=== PATIENT | male | born 1965 | race Caucasian/White ===

== ENCOUNTER 2019-09-14 15:37 | Inpatient (IN) | payer BC ==
[2019-09-14 16:35] LABS: Basophils % (A) 1 %; Eosinophils % (A) 1 %; HCT 41.4 % (39.0-53.0); Lymphocytes # (A) 0.6 k/uL (1.0-4.8); Lymphocytes % (A) 20 %; MCH 30.5 pg (25.0-35.0); MCHC 36.3 g/dL (31.0-37.0); Mean Platelet Volume 7.5; Monocytes # (A) 0.1 k/uL (0-1.0); Monocytes % (A) 3 %; Neutrophils % (A) 72 %; Platelet Count 112 k/uL (150-450); RBC 4.93 m/uL (4.30-5.90); RDW 12.8 % (11.5-15.5); WBC 2.8 k/uL (3.8-10.6)
[2019-09-14] MEDS ORDERED: IBUPROFEN 800 MG TAB PO STA (16:42)
[2019-09-14] MEDS ORDERED: SODIUM CHLORIDE 0.9% 1,000 ML IV STA (16:42)
--- NOTE | 2019-09-14 16:42 | ED ---
Fever HPI - General Chief Complaint: Fever Stated Complaint: Fever Time Seen by Provider: 09/14/19 16:00 Source: patient, RN notes reviewed, old records reviewed Mode of arrival: ambulatory Limitations: no limitations - History of Present Illness Initial Comments: This is a 54-year-old male presented today for evaluation bodyaches severe body aches pains myalgias sweating fever 3 days back pain. No real shortness of breath patient states she does not feel well has 12th time sleeping at night, patient is no sick contacts no travel history MD Complaint: fever, weakness -: days(s) (3) Temperature Source: oral Context: sick contacts Associated Symptoms: chills, rigors, myalgias, headache Treatments Prior to Arrival: Acetaminophen - Related Data Allergies Allergy/AdvReac Type Severity Reaction Status Date / Time No Known Allergies Allergy Verified 09/14/19 15:42 Review of Systems ROS Statement: Those systems with pertinent positive or pertinent negative responses have been documented in the HPI. ROS Other: All systems not noted in ROS Statement are negative. Past Medical History Past Medical History: No Reported History History of Any Multi-Drug Resistant Organisms: None Reported Past Surgical History: Orthopedic Surgery Past Psychological History: No Psychological Hx Reported Smoking Status: Never smoker Past Alcohol Use History: Occasional Past Drug Use History: None Reported General Exam Limitations: no limitations General appearance: alert, anxious, in distress Head exam: Present: atraumatic, normocephalic, normal inspection Eye exam: Present: normal appearance, PERRL, EOMI. Absent: scleral icterus, conjunctival injection, periorbital swelling ENT exam: Present: normal exam, mucous membranes moist Neck exam: Present: normal inspection. Absent: tenderness, meningismus, lymphadenopathy Respiratory exam: Present: normal lung sounds bilaterally. Absent: respiratory distress, wheezes, rales, rhonchi, stridor Cardiovascular Exam: Present: normal rhythm, tachycardia, normal heart sounds. Absent: systolic murmur, diastolic murmur, rubs, gallop, clicks GI/Abdominal exam: Present: soft, normal bowel sounds. Absent: distended, tenderness, guarding, rebound, rigid Extremities exam: Present: normal inspection, full ROM, normal capillary refill. Absent: tenderness, pedal edema, joint swelling, calf tenderness Back exam: Present: normal inspection Neurological exam: Present: alert, oriented X3, CN II-XII intact Psychiatric exam: Present: normal affect, normal mood Skin exam: Present: warm, dry, intact, normal color. Absent: rash Course Vital Signs 09/14/19 09/14/19 09/14/19 15:39 16:30 17:00 Temperature 102.9 F H Pulse Rate 101 H 95 94 Respiratory 17 26 H 22 Rate Blood Pressure 138/83 130/76 125/68 O2 Sat by Pulse 94 L 95 94 L Oximetry 09/14/19 17:30 Temperature Pulse Rate 88 Respiratory 22 Rate Blood Pressure 117/64 O2 Sat by Pulse 94 L Oximetry Medical Decision Making - Medical Decision Making 54 male DF for fever patient has likely COVID 19 disease will admit for supportive care - Lab Data Result diagrams: 09/14/19 16:15 09/14/19 16:15 Lab Results 09/14/19 09/14/19 09/14/19 Range/Units 16:15 16:15 16:15 WBC 2.8 L (3.8-10.6) k/uL RBC 4.93 (4.30-5.90) m/uL Hgb 15.0 (13.0-17.5) gm/dL Hct 41.4 (39.0-53.0) % MCV 84.0 (80.0-100.0) fL MCH 30.5 (25.0-35.0) pg MCHC 36.3 (31.0-37.0) g/dL RDW 12.8 (11.5-15.5) % Plt Count 112 L (150-450) k/uL Neutrophils % 72 % Lymphocytes % 20 % Monocytes % 3 % Eosinophils % 1 % Basophils % 1 % Neutrophils # 2.0 (1.3-7.7) k/uL Lymphocytes # 0.6 L (1.0-4.8) k/uL Monocytes # 0.1 (0-1.0) k/uL Eosinophils # 0.0 (0-0.7) k/uL Basophils # 0.0 (0-0.2) k/uL PT 11.0 (9.0-12.0) sec INR 1.1 (<1.2) APTT 24.7 (22.0-30.0) sec D-Dimer 10.91 H (<0.60) mg/L FEU Sodium 132 L (137-145) mmol/L Potassium 3.8 (3.5-5.1) mmol/L Chloride 103 (98-107) mmol/L Carbon Dioxide 22 (22-30) mmol/L Anion Gap 7 mmol/L BUN 15 (9-20) mg/dL Creatinine 0.95 (0.66-1.25) mg/dL Est GFR (CKD-EPI)AfAm >90 (>60 ml/min/1.73 sqM) Est GFR (CKD-EPI)NonAf >90 (>60 ml/min/1.73 sqM) Glucose 116 H (74-99) mg/dL Plasma Lactic Acid Saurabh (0.7-2.0) mmol/L Calcium 8.3 L (8.4-10.2) mg/dL Magnesium 1.8 (1.6-2.3) mg/dL Total Bilirubin 2.1 H (0.2-1.3) mg/dL AST 302 H (17-59) U/L ALT 243 H (4-49) U/L Alkaline Phosphatase 274 H (38-126) U/L Lactate Dehydrogenase 1490 H (313-618) U/L C-Reactive Protein 52.5 H (<10.0) mg/L Total Protein 6.6 (6.3-8.2) g/dL Albumin 3.8 (3.5-5.0) g/dL 09/14/19 Range/Units 16:15 WBC (3.8-10.6) k/uL RBC (4.30-5.90) m/uL Hgb (13.0-17.5) gm/dL Hct (39.0-53.0) % MCV (80.0-100.0) fL MCH (25.0-35.0) pg MCHC (31.0-37.0) g/dL RDW (11.5-15.5) % Plt Count (150-450) k/uL Neutrophils % % Lymphocytes % % Monocytes % % Eosinophils % % Basophils % % Neutrophils # (1.3-7.7) k/uL Lymphocytes # (1.0-4.8) k/uL Monocytes # (0-1.0) k/uL Eosinophils # (0-0.7) k/uL Basophils # (0-0.2) k/uL PT (9.0-12.0) sec INR (<1.2) APTT (22.0-30.0) sec D-Dimer (<0.60) mg/L FEU Sodium (137-145) mmol/L Potassium (3.5-5.1) mmol/L Chloride (98-107) mmol/L Carbon Dioxide (22-30) mmol/L Anion Gap mmol/L BUN (9-20) mg/dL Creatinine (0.66-1.25) mg/dL Est GFR (CKD-EPI)AfAm (>60 ml/min/1.73 sqM) Est GFR (CKD-EPI)NonAf (>60 ml/min/1.73 sqM) Glucose (74-99) mg/dL Plasma Lactic Acid Saurabh 0.9 (0.7-2.0) mmol/L Calcium (8.4-10.2) mg/dL Magnesium (1.6-2.3) mg/dL Total Bilirubin (0.2-1.3) mg/dL AST (17-59) U/L ALT (4-49) U/L Alkaline Phosphatase (38-126) U/L Lactate Dehydrogenase (313-618) U/L C-Reactive Protein (<10.0) mg/L Total Protein (6.3-8.2) g/dL Albumin (3.5-5.0) g/dL - EKG Data -: EKG Interpreted by Me (EKG shows sinus 94, TX 134, QRS 70, QTc 420) - Radiology Data Radiology results: report reviewed (Chest x-rays negative for acute disease), image reviewed Disposition Clinical Impression: Viral infection, Sepsis, Fever Narrative: possible COVID r/o Disposition: ADMITTED IP TO THIS [facility] Condition: Fair Is patient prescribed a controlled substance at d/c from ED?: No Referrals: Nonstaff,Physician [Primary Care Provider] - 1-2 days
--- NOTE | 2019-09-14 16:42 | XR ---
EXAMINATION TYPE: XR chest 1V portable DATE OF EXAM: 09/14/2019 COMPARISON: None INDICATION: Suspected Covid 19 pneumonia, fever, cough TECHNIQUE: Single frontal view of the chest is obtained. FINDINGS: The heart size is normal. The pulmonary vasculature is normal. The lungs are clear. IMPRESSION: 1. No acute pulmonary process radiographically apparent..
[2019-09-14 16:46] LABS: ALT 243 U/L (4-49); AST 302 U/L (17-59); African American GFR (CKD) >90 (>60 ml/min/1.73 sqM); Albumin 3.8 g/dL (3.5-5.0); Alkaline Phosphatase 274 U/L (38-126); Anion Gap 7 mmol/L; Blood Urea Nitrogen 15 mg/dL (9-20); C Reactive Protein 52.5 mg/L (<10.0); Calcium 8.3 mg/dL (8.4-10.2); Carbon Dioxide 22 mmol/L (22-30); Chloride 103 mmol/L (98-107); Glucose 116 mg/dL (74-99); LDH 1490 U/L (313-618); Magnesium 1.8 mg/dL (1.6-2.3); Non-African American GFR(CKD) >90 (>60 ml/min/1.73 sqM); Potassium 3.8 mmol/L (3.5-5.1); Sodium 132 mmol/L (137-145); Total Bilirubin 2.1 mg/dL (0.2-1.3); Total Protein 6.6 g/dL (6.3-8.2)
[2019-09-14 17:06] LABS: INR 1.1 (<1.2); Partial Thromboplastin Time 24.7 sec (22.0-30.0)
[2019-09-14 17:19] LABS: D-Dimer 10.91 mg/L FEU (<0.60)
[2019-09-14] MEDS ORDERED: MORPHINE SULFATE 4 MG/ML SYRINGE IVP STA (18:06)
[2019-09-14] MEDS: SODIUM CHLORIDE 0.9% 1,000 ML IV SCH (23:06)
[2019-09-15] MEDS: MORPHINE SULFATE 4 MG/ML SYRINGE IVP PRN ×4 (01:04→12:21)
[2019-09-15] MEDS: IBUPROFEN 400 MG TAB PO PRN ×2 (03:35→12:20)
[2019-09-15] MEDS: SODIUM CHLORIDE 0.9% 1,000 ML IV SCH ×3 (06:06→23:30)
--- NOTE | 2019-09-15 14:06 | P.HPIM ---
History of Present Illness 54-year-old male came in with comments of severe body aches myalgias and fever going on for about 4 days. Patient denied any shortness of breath. Patient had recent travel history or sick contacts. Chest x-ray did not show pneumonia. Patient is on room air at this time. Patient and any symptoms of dysuria nausea vomiting. Patient has severe pain and body aches and headache at this time. Review of Systems REVIEW OF SYSTEMS: CONSTITUTIONAL: As mentioned in HPI HEENT: No recent visual problems or hearing problems. Denied any sore throat. CARDIOVASCULAR: No chest pain, orthopnea, PND, no palpitations, no syncope. PULMONARY: No shortness of breath, no cough, no hemoptysis. GASTROINTESTINAL: No diarrhea, no nausea, no vomiting, no abdominal pain. NEUROLOGICAL: No headaches, no weakness, no numbness. HEMATOLOGICAL: Denies any bleeding or petechiae. GENITOURINARY: Denies any burning micturition, frequency, or urgency. MUSCULOSKELETAL/RHEUMATOLOGICAL: Denies any joint pain, swelling, or any muscle pain. ENDOCRINE: Denies any polyuria or polydipsia. The rest of the 14-point review of systems is negative. Past Medical History Past Medical History: No Reported History History of Any Multi-Drug Resistant Organisms: None Reported Past Surgical History: Orthopedic Surgery Additional Past Surgical History / Comment(s): shoulder, ankle Past Anesthesia/Blood Transfusion Reactions: No Reported Reaction Past Psychological History: No Psychological Hx Reported Smoking Status: Never smoker Past Alcohol Use History: Occasional Past Drug Use History: None Reported Medications and Allergies Home Medications Medication Instructions Recorded Confirmed Type No Known Home Medications 09/14/19 09/14/19 History Allergies Allergy/AdvReac Type Severity Reaction Status Date / Time No Known Allergies Allergy Verified 09/14/19 18:18 Physical Exam Vitals: Vital Signs Temp Pulse Pulse Resp BP BP Pulse Ox 09/15/19 12:00 99.7 F H 95 23 156/72 100 09/15/19 09:23 98.8 F 09/15/19 07:00 98.4 F 81 15 121/79 96 09/15/19 06:08 98.8 F 09/15/19 04:58 100.0 F H 09/15/19 04:30 102.0 F H 09/15/19 03:10 102.8 F H 103 H 132/71 96 09/14/19 23:10 98.3 F 73 15 126/73 99 09/14/19 23:08 98.3 F 60 16 109/60 99 09/14/19 21:00 64 16 112/74 95 09/14/19 19:56 16 09/14/19 19:53 98.4 F 64 16 110/57 96 09/14/19 18:38 98.6 F 09/14/19 18:30 71 22 119/70 94 L 09/14/19 18:00 71 16 124/73 94 L 09/14/19 17:30 88 22 117/64 94 L 09/14/19 17:00 94 22 125/68 94 L 09/14/19 16:30 95 26 H 130/76 95 09/14/19 15:39 102.9 F H 101 H 17 138/83 94 L Intake and Output 09/14/19 09/15/19 09/15/19 22:59 06:59 14:59 Other: Voiding Method Toilet Toilet # Voids 1 Weight 95.254 kg 95.254 kg PHYSICAL EXAMINATION: GENERAL: The patient is alert and oriented x3, not in any acute distress. Well developed, well nourished. HEENT: Pupils are round and equally reacting to light. EOMI. No scleral icterus. No conjunctival pallor. Normocephalic, atraumatic. No pharyngeal erythema. No thyromegaly. CARDIOVASCULAR: S1 and S2 present. No murmurs, rubs, or gallops. PULMONARY: Chest is clear to auscultation, no wheezing or crackles. ABDOMEN: Soft, nontender, nondistended, normoactive bowel sounds. No palpable organomegaly. MUSCULOSKELETAL: No joint swelling or deformity. EXTREMITIES: No cyanosis, clubbing, or pedal edema. NEUROLOGICAL: Gross neurological examination did not reveal any focal deficits. SKIN: No rashes. Note: Because of COVID 19 isolation, some of the history and physical exam findings or indirect and obtained from nursing staff, and other physician examinations to avoid unnecessary contact with the patient. Results CBC & Chem 7: 09/14/19 16:15 09/14/19 16:15 Labs: Abnormal Lab Results - Last 24 Hours (Table) 09/14/19 09/14/19 09/14/19 Range/Units 16:15 16:15 16:15 WBC 2.8 L (3.8-10.6) k/uL Plt Count 112 L (150-450) k/uL Lymphocytes # 0.6 L (1.0-4.8) k/uL D-Dimer 10.91 H (<0.60) mg/L FEU Sodium 132 L (137-145) mmol/L Glucose 116 H (74-99) mg/dL Calcium 8.3 L (8.4-10.2) mg/dL Total Bilirubin 2.1 H (0.2-1.3) mg/dL AST 302 H (17-59) U/L ALT 243 H (4-49) U/L Alkaline Phosphatase 274 H (38-126) U/L Lactate Dehydrogenase 1490 H (313-618) U/L C-Reactive Protein 52.5 H (<10.0) mg/L Procalcitonin (0.02-0.09) ng/mL 09/14/19 Range/Units 16:15 WBC (3.8-10.6) k/uL Plt Count (150-450) k/uL Lymphocytes # (1.0-4.8) k/uL D-Dimer (<0.60) mg/L FEU Sodium (137-145) mmol/L Glucose (74-99) mg/dL Calcium (8.4-10.2) mg/dL Total Bilirubin (0.2-1.3) mg/dL AST (17-59) U/L ALT (4-49) U/L Alkaline Phosphatase (38-126) U/L Lactate Dehydrogenase (313-618) U/L C-Reactive Protein (<10.0) mg/L Procalcitonin 0.33 H (0.02-0.09) ng/mL Thrombosis Risk Factor Assmnt - Choose All That Apply Each Factor Represents 1 point: Age 41-60 years, Obesity (BMI >25) Other Risk Factors: No Other congenital or acquired thrombophilia - If yes, enter type in comment: No Thrombosis Risk Factor Assessment Total Risk Factor Score: 2 Thrombosis Risk Factor Assessment Level: Low Risk Assessment and Plan Plan: -Sepsis most probably secondary to Covid 19 had supportive care IV fluids and patient was started on Rocephin by infectious disease empirically. -Hyponatremia hypotonic hyponatremia from sepsis secondary with IV fluids -Severe lymphopenia along with LDH and elevated d-dimer: Patient will be started on anticoagulation since of Lovenox for now. This will be continued if patient is positive for Covid 19 or is this will be discontinued patient will lead" for about a month and a tonsillectomy Covid 19 positive -Elevated liver enzymes secondary to sepsis and "from Covid 19 we'll repeat liver enzymes again tomorrow we will also repeat d-dimer to -Tachycardia secondary to sepsis and fever for continue with IV fluids
[2019-09-15] MEDS: ACETAMINOPHEN TAB 325 MG TAB PO PRN ×2 (14:53→21:05)
[2019-09-15] MEDS: KETOROLAC 30 MG/ML 1 ML VIAL IVP PRN (14:53)
[2019-09-15] MEDS ORDERED: ALPRAZolam 0.25 MG TAB PO PRN (15:08)
[2019-09-15 15:55] LABS: Ferritin 758.7 ng/mL (22.0-322.0)
--- NOTE | 2019-09-15 18:07 | CT ---
EXAMINATION TYPE: CT chest angio for PE DATE OF EXAM: 09/15/2019 COMPARISON: None HISTORY: elevated d-dimer CT DLP: 527.4 mGycm Automated exposure control for dose reduction was used. CONTRAST: Performed with IV Contrast, patient injected with 85cc mL of Isovue 370. There are 3-D post processed images. The lungs are clear of consolidation. There is no evidence of a pulmonary mass. There is mild subsegm ental atelectasis at the lung bases. Heart is slightly enlarged. There is no pericardial effusion. Th ere is no pleural effusion. There are no hilar masses. There is no mediastinal adenopathy. Thoracic aorta is intact without evide nce of aneurysm or dissection. There is normal contrast opacification of the pulmonary arteries. There are no filling defects. Victor um is intact. Bony thorax is intact. There is no thoracic compression fracture. IMPRESSION: There is some patchy atelectasis at the lung bases. No evidence of pulmonary embolism.
[2019-09-15] MEDS: ENOXAPARIN 100 MG/ML SYRINGE SQ SCH (21:05)
[2019-09-15 21:55] LABS: Hepatitis A Antibody IgM Non-Reactive (Non-Reactive); Hepatitis B Core IgM Non-Reactive (Non-Reactive); Hepatitis B Surface Antigen Non-Reactive (Non-Reactive); Hepatitis C IgG Antibody Non-Reactive (Non-Reactive)
[2019-09-16] MEDS: KETOROLAC 30 MG/ML 1 ML VIAL IVP PRN ×3 (05:53→20:58)
--- NOTE | 2019-09-16 06:56 | P.CONS ---
History of Present Illness - Reason for Consult Consult date: 09/15/19 Fever ?COVID Requesting physician: Isa Martinez - Chief Complaint Fever and body aches x 3 days - History of Present Illness Patient is a 54-year-old male presenting to the ER at [facility] with chief complaints of severe body aches and fever that is been going on for about 3 days before presentation to the hospital patient denies having any sick contact denies having any headache no URI symptoms no chest pain or shortness of breath he did have very minimal cough with occasional clear sputum denies having any nausea no vomiting no abdominal pain he did have some diarrhea though with the symptom had the patient was evaluated by the ER physician on arrival to the ER the patient did have a fever of 102.9 F patient has been tachycardic at times he was noticed to have a leukopenia as well as lymphopenia elevated d-dimer and elevated liver enzymes in addition to elevated LDH and a CRP patient has been diagnosed with presumed COVID-19 infection and has been admitted to the hospital patient did have a chest x-ray that reported negative for any acute cardiopulmonary process with elevated d-dimer CT angiogram was done this evening which came back negative for PE and did not show any groundglass opacities. Review of Systems Positive point has been mentioned in HPI rest of the systems are negative Past Medical History Past Medical History: No Reported History History of Any Multi-Drug Resistant Organisms: None Reported Past Surgical History: Orthopedic Surgery Additional Past Surgical History / Comment(s): shoulder, ankle Past Anesthesia/Blood Transfusion Reactions: No Reported Reaction Past Psychological History: No Psychological Hx Reported Smoking Status: Never smoker Past Alcohol Use History: Occasional Past Drug Use History: None Reported Medications and Allergies Home Medications Medication Instructions Recorded Confirmed Type No Known Home Medications 09/14/19 09/14/19 History Allergies Allergy/AdvReac Type Severity Reaction Status Date / Time No Known Allergies Allergy Verified 09/14/19 18:18 Physical Exam Vitals: Vital Signs Temp Pulse Resp BP Pulse Ox 09/16/19 04:25 99.1 F 86 18 125/72 96 09/15/19 19:47 97.8 F 68 17 120/69 96 09/15/19 16:17 99 F 09/15/19 15:00 102.9 F H 111 H 18 121/68 94 L 09/15/19 12:00 99.7 F H 95 23 156/72 100 09/15/19 09:23 98.8 F 09/15/19 07:00 98.4 F 81 15 121/79 96 Intake and Output 09/15/19 09/15/19 09/16/19 14:59 22:59 06:59 Intake Total 540 Balance 540 Intake: Oral 540 Other: Voiding Method Toilet Toilet # Voids 3 3 GENERAL DESCRIPTION: Middle-aged male lying in bed, no distress. No tachypnea or accessory muscle of respiration use. HEENT: Shows Pallor , no scleral icterus. Oral mucous membrane is dry. NECK: Trachea central, no thyromegaly. LUNGS: Unlabored breathing. Few coarse crackle at the right base. No wheeze or crackle. HEART: S1, S2, regular rate and rhythm. ABDOMEN: Soft, no tenderness , guarding or rigidity EXTREMITIES: No edema of feet. SKIN: No rash, no masses palpable. NEUROLOGICAL: The patient is awake, alert, oriented x3, mood and affect normal. Results CBC & Chem 7: 09/14/19 16:15 09/14/19 16:15 Labs: Abnormal Lab Results - Last 24 Hours (Table) 09/14/19 09/14/19 Range/Units 16:15 16:15 Ferritin 758.7 H (22.0-322.0) ng/mL Procalcitonin 0.33 H (0.02-0.09) ng/mL Microbiology - Last 24 Hours (Table) 09/14/19 16:15 Blood Culture - Preliminary Blood No Growth after 24 hours Assessment and Plan Assessment: -patient presented to the hospital with fever myalgia weakness and did have a cough with inflammatory markers and high clinical suspicious for COVID-19 however had the patient has a very swab came back negative and the CT angiogram did not show typical groundglass opacities for COVID-19, with elevated liver enzymes will have to make sure not dealing with any hepatobiliary source and other viral infections such as CMV and EBV (1) Fever Current Visit: Yes Status: Acute Code(s): R50.9 - FEVER, UNSPECIFIED SNOMED Code(s): 458902845 (2) Sepsis Current Visit: Yes Status: Acute Code(s): A41.9 - SEPSIS, UNSPECIFIED ORGANISM SNOMED Code(s): 60261054 Plan: 1-we will empirically start the patient Rocephin 2 g daily 2-check an ultrasound of the liver and gallbladder area 3-check CMV and EBV serology We will follow on clinical condition and cultures to further adjust medication if needed Thank you for this consultation we will follow the patient along with you Time with Patient: Greater than 30
[2019-09-16] MEDS: ENOXAPARIN 100 MG/ML SYRINGE SQ SCH (08:14)
--- NOTE | 2019-09-16 08:32 | US ---
EXAMINATION TYPE: US abdomen complete DATE OF EXAM: 09/16/2019 COMPARISON: NONE CLINICAL HISTORY: fever , elevated LFT. EXAM MEASUREMENTS: Liver Length: 13.4 cm Gallbladder Wall: 0.3 cm CBD: 0.5 cm Spleen: 14.6 cm Right Kidney: 12.9 x 5.7 x 6.2 cm Left Kidney: 12.1 x 5.1 x 5.6 cm Technically difficult study due to midline bowel gas and patient's inability to take in breath and ho ld. Pancreas: visualized portions wnl Liver: Coarsened echo pattern Gallbladder: No stones seen Evidence for sonographic Burden's sign: No CBD: wnl Spleen: measures 14.6 cm Right Kidney: No hydronephrosis or masses seen Left Kidney: No hydronephrosis or masses seen Upper IVC: wnl Abd Aorta: wnl IMPRESSION: 1. Limited exam demonstrates borderline splenomegaly. 2. Coarsened pattern to the liver can be seen with hepatic steatosis or hepatitis correlate clinicall y.
[2019-09-16 11:43] LABS: ALT 202 U/L (4-49); AST 192 U/L (17-59); African American GFR (CKD) >90 (>60 ml/min/1.73 sqM); Albumin 2.8 g/dL (3.5-5.0); Alkaline Phosphatase 245 U/L (38-126); Anion Gap 5 mmol/L; Blood Urea Nitrogen 12 mg/dL (9-20); Calcium 7.5 mg/dL (8.4-10.2); Carbon Dioxide 22 mmol/L (22-30); Chloride 107 mmol/L (98-107); Glucose 89 mg/dL (74-99); Non-African American GFR(CKD) >90 (>60 ml/min/1.73 sqM); Potassium 3.5 mmol/L (3.5-5.1); Sodium 134 mmol/L (137-145); Total Bilirubin 2.8 mg/dL (0.2-1.3); Total Protein 5.4 g/dL (6.3-8.2)
--- NOTE | 2019-09-16 14:46 | P.PN ---
Subjective 54-year-old male came in with comments of severe body aches myalgias and fever going on for about 4 days. Patient denied any shortness of breath. Patient had recent travel history or sick contacts. Chest x-ray did not show pneumonia. Patient is on room air at this time. Patient and any symptoms of dysuria nausea vomiting. Patient has severe pain and body aches and headache at this time. 09/16/2019 Patient's cocid 19 is negative. Discussed with infectious disease will order repeat [facility]. Patient may have systemic CMV infection appropriate labs for us sent. Patient will be supportive care as patient doesn't have any pneumonia. Patient is still coming of severe body aches and pain. Constitutional: as mentioned in HPI Cardio vascular: denied any chest pain, palpitations Gastrointestinal denied any nausea vomiting Pulmonary: Denied any shortness of breath cough Neurologic denied any new focal deficits All inpatient medications were reviewed and appropriate changes in these medications as dictated in the interval history and assessment and plan. Objective - Vital Signs Vital signs: Vital Signs Temp 98.4 F 09/16/19 07:00 Pulse 84 09/16/19 08:00 Resp 19 09/16/19 08:00 BP 128/76 09/16/19 07:00 Pulse Ox 95 09/16/19 07:00 Intake & Output 09/15/19 09/16/19 09/16/19 18:59 06:59 18:59 Intake Total 540 Balance 540 Intake: Oral 540 Other: Voiding Method Toilet Toilet # Voids 3 3 - Exam PHYSICAL EXAMINATION: GENERAL: The patient is alert and oriented x3, not in any acute distress. Well developed, well nourished. HEENT: Pupils are round and equally reacting to light. EOMI. No scleral icterus. No conjunctival pallor. Normocephalic, atraumatic. No pharyngeal erythema. No thyromegaly. CARDIOVASCULAR: S1 and S2 present. No murmurs, rubs, or gallops. PULMONARY: Chest is clear to auscultation, no wheezing or crackles. ABDOMEN: Soft, nontender, nondistended, normoactive bowel sounds. No palpable organomegaly. MUSCULOSKELETAL: No joint swelling or deformity. EXTREMITIES: No cyanosis, clubbing, or pedal edema. NEUROLOGICAL: Gross neurological examination did not reveal any focal deficits. SKIN: No rashes. Note: Because of COVID 19 isolation, some of the history and physical exam findings or indirect and obtained from nursing staff, and other physician examinations to avoid unnecessary contact with the patient. - Labs CBC & Chem 7: 09/14/19 16:15 09/16/19 08:53 Labs: Abnormal Lab Results - Last 24 Hours (Table) 09/14/19 09/16/19 09/16/19 Range/Units 16:15 07:34 08:53 D-Dimer 2.83 H (<0.60) mg/L FEU Sodium 134 L (137-145) mmol/L Calcium 7.5 L (8.4-10.2) mg/dL Ferritin 758.7 H (22.0-322.0) ng/mL Total Bilirubin 2.8 H (0.2-1.3) mg/dL AST 192 H (17-59) U/L ALT 202 H (4-49) U/L Alkaline Phosphatase 245 H (38-126) U/L Total Protein 5.4 L (6.3-8.2) g/dL Albumin 2.8 L (3.5-5.0) g/dL Microbiology - Last 24 Hours (Table) 09/14/19 16:15 Blood Culture - Preliminary Blood No Growth after 24 hours Assessment and Plan Plan: -Sepsis most probably secondary tosystemic CMV had supportive care IV fluids and patient was started on Rocephin by infectious disease empirically.: 819 is negative -Hyponatremiahypothermic hyponatremia on IV fluids and improving -Severe lymphopenia along with LDH and elevated d-dimer:secondary to systemic viral infection was -Elevated liver enzymes secondary to systemic CMV. -Tachycardia secondary to sepsis and fever for continue with IV fluids
[2019-09-16] MEDS: ACETAMINOPHEN TAB 325 MG TAB PO PRN (16:00)
[2019-09-16] MEDS: SODIUM CHLORIDE 0.9% 1,000 ML IV SCH ×2 (16:01→19:53)
[2019-09-16 17:26] LABS: EBV-EA (IgG) 1.1 AI; EBV-EBNA(IgG) 6.9 AI; EBV-VCA (IgG) >8.0 AI; EBV-VCA (IgM) 1.1 AI
--- NOTE | 2019-09-16 21:50 | PN ---
PROGRESS NOTE DATE OF SERVICE: 09/16/2019 REASON FOR FOLLOWUP: Fever, likely acute EBV viral infection. INTERVAL HISTORY: The patient's overall fever pattern has improved. The patient's last temperature was 102.9 around 3:00 yesterday. The patient has been complaining of excruciating headache. No photophobia. No nausea, no vomiting. No chest pain, shortness of breath or cough and no diarrhea. PHYSICAL EXAMINATION: Blood pressure 132/71 with a pulse of 74, temperature 99. He is 95% on room air. General description is a middle-aged male lying in bed in no distress. RESPIRATORY SYSTEM: Unlabored breathing. Clear to auscultation. HEART: S1, S2. Regular rate and rhythm. ABDOMEN: Soft. No tenderness. LABS: BUN of 12, creatinine 0.81. Liver enzymes are mildly improved. The patient's CMV antibody came back negative. However, the patient's EBV IgM and nuclear antigen positive. DIAGNOSTIC IMPRESSION AND PLAN: Patient presented to hospital with fever, rigors and chills with elevated liver enzymes, likely secondary to acute EBV infection. Consultation was called for possible viral meningitis in view of significant headache. However, now with the diagnosis confirmed with EBV, we will cancel the LP and not put the patient through any invasive procedure that may put him through complications and less diagnostic . Treatment is supportive and antibiotic will be safely discontinued. MMODL / IJN: [id number] /
[2019-09-17] MEDS: SODIUM CHLORIDE 0.9% 1,000 ML IV SCH (01:42)
[2019-09-17] MEDS: ACETAMINOPHEN TAB 325 MG TAB PO PRN (06:27)
[2019-09-17 07:58] LABS: HGB 12.7 gm/dL (13.0-17.5); MCH 29.6 pg (25.0-35.0); MCHC 34.4 g/dL (31.0-37.0); Mean Platelet Volume 8.1; Platelet Count 112 k/uL (150-450); RDW 13.1 % (11.5-15.5); WBC 3.5 k/uL (3.8-10.6)
[2019-09-17 08:23] LABS: ALT 236 U/L (4-49); AST 220 U/L (17-59); African American GFR (CKD) >90 (>60 ml/min/1.73 sqM); Alkaline Phosphatase 277 U/L (38-126); Anion Gap 5 mmol/L; Bilirubin, Conjugated 1.3 mg/dL (0.0-0.3); Bilirubin, Delta 1.2 mg/dL (0.0-0.2); Bilirubin,Unconjugated 0.9 mg/dL (0.0-1.1); Blood Urea Nitrogen 9 mg/dL (9-20); Calcium 7.5 mg/dL (8.4-10.2); Carbon Dioxide 23 mmol/L (22-30); Chloride 106 mmol/L (98-107); Glucose 93 mg/dL (74-99); Non-African American GFR(CKD) >90 (>60 ml/min/1.73 sqM); Potassium 3.5 mmol/L (3.5-5.1); Sodium 134 mmol/L (137-145); Total Bilirubin 3.4 mg/dL (0.2-1.3); Total Protein 5.7 g/dL (6.3-8.2)
[2019-09-17 08:31] VITALS: BP 160/83; PULSE 73; RESP 16; TEMP 97.8
[2019-09-17] MEDS ORDERED: ENOXAPARIN 40 MG/0.4 ML SYRINGE SQ SCH (09:00)
--- NOTE | 2019-09-17 12:56 | PN ---
PROGRESS NOTE DATE OF SERVICE: 09/17/2019 REASON FOR FOLLOWUP: Elevated liver enzymes, likely acute Maryann-Jc 1 infection. INTERVAL HISTORY: The patient's overall fever pattern has improved, the T-max of 99.9. So far the patient is complaining of headache, no worsening. No chest pain. No shortness of breath or cough. No nausea, vomiting. No abdominal pain, no diarrhea. PHYSICAL EXAMINATION: Blood pressure 160/83 with a pulse of 73, temperature 97.8. He is 94% on room air. General description is a middle-aged male, lying in bed in no distress. RESPIRATORY SYSTEM: Unlabored breathing, clear to auscultation anteriorly. HEART: S1, S2. Regular rate and rhythm. ABDOMEN: Soft, no tenderness. EXTREMITIES: No edema of the feet. LABS: Hemoglobin is 12.1, white count 3.5, 112. Liver enzymes elevated. EBV IgM and early antigen positive. DIAGNOSTIC IMPRESSION AND PLAN: Patient with a fever and elevated liver enzymes, likely acute EBV infection. Treatment will be symptomatic. His questions and concerns have been answered. Otherwise, no contact sport in the last 6 months. Patient is still complaining of some headache, more likely related to his acute EBV syndrome. Other possibility could be a viral meningitis. Treatment still with be supportive, hence, LP has not been done. MMODL / IJN: [id number] /
--- NOTE | 2019-09-17 12:58 | P.DS ---
Providers Date of admission: 09/16/19 09:36 Attending physician: Isa Martinez Consults: 09/14/19 22:32 Consult Physician Routine Consulting Provider: Sadi Rodriguez Consult Reason/Comments: COVID Do you want consulting provider notified?: Yes Primary care physician: Physician Nonstaff Hospital Course: 54-year-old male came in with comments of severe body aches myalgias and fever going on for about 4 days. Patient denied any shortness of breath. Patient had recent travel history or sick contacts. Chest x-ray did not show pneumonia. Patient is on room air at this time. Patient and any symptoms of dysuria nausea vomiting. Patient has severe pain and body aches and headache at this time. 09/16/2019 Patient's covid 19 is negative. Discussed with infectious disease will order repeat covid[facility] to [facility]. Patient may have systemic CMV infection appropriate labs for us sent. Patient will be supportive care as patient doesn't have any pneumonia. Patient is still coming of severe body aches and pain. 09/17/2019 Patient appears to have EBV infection.patient that is positive for capsular IgG and IgM antibody in nuclear IgG antibody. Patient's IV antibiotics were discussed uterine patient will receive symptomatically treatment patient doesn't have any pneumonia on the x-ray the possibility of covid 19 is low although we cannot completely ruled out awaiting the repeat echo covid 19 PCR. Patient's heterophile antibodies negative. Patient was discharged on nonsteroidal anti- inflammatories and [place] for headache patient does have elevated liver enzymes although they're coming down are fairly stable. PHYSICAL EXAMINATION: GENERAL: The patient is alert and oriented x3, not in any acute distress. Well developed, well nourished. HEENT: Pupils are round and equally reacting to light. EOMI. No scleral icterus. No conjunctival pallor. Normocephalic, atraumatic. No pharyngeal erythema. No thyromegaly. CARDIOVASCULAR: S1 and S2 present. No murmurs, rubs, or gallops. PULMONARY: Chest is clear to auscultation, no wheezing or crackles. ABDOMEN: Soft, nontender, nondistended, normoactive bowel sounds. No palpable organomegaly. MUSCULOSKELETAL: No joint swelling or deformity. EXTREMITIES: No cyanosis, clubbing, or pedal edema. NEUROLOGICAL: Gross neurological examination did not reveal any focal deficits. SKIN: No rashes. Note: Because of COVID 19 isolation, some of the history and physical exam findings or indirect and obtained from nursing staff, and other physician examinations to avoid unnecessary contact with the patient. Assessment and Plan Plan: -Sepsis most probably secondary section with Maryann-Jc virus -Rule out Covid 19 -Hyponatremiahypothermic hyponatremia improved with IV fluids -Severe lymphopenia along with LDH and elevated d-dimer:secondary to systemic viral infection was -Elevated liver enzymes secondary to systemic EBV Patient Condition at Discharge: Fair Plan - Discharge Summary Discharge Rx Participant: No New Discharge Prescriptions: New Ibuprofen [Motrin] 400 mg PO Q6HR PRN #30 tab PRN Reason: Pain HYDROcodone/APAP 7.5-325MG [[place] 7.5-325] 1 tab PO Q4H PRN #20 tab PRN Reason: Pain Famotidine [Pepcid] 20 mg PO BID #30 tablet Discharge Medication List Famotidine [Pepcid] 20 mg PO BID #30 tablet 09/17/19 [Rx] HYDROcodone/APAP 7.5-325MG [[place] 7.5-325] 1 tab PO Q4H PRN #20 tab 09/17/19 [Rx] Ibuprofen [Motrin] 400 mg PO Q6HR PRN #30 tab 09/17/19 [Rx] Follow up Appointment(s)/Referral(s): Michi Plummer III, MD [STAFF PHYSICIAN] - 1 Week (office not answering at time of discharge. Please call to make appointment) Sadi Rodriguez MD [STAFF PHYSICIAN] - 1 Week (office will call) Discharge Disposition: HOME SELF-CARE
--- NOTE | 2019-09-19 07:46 | CDI ---
Documentation Clarification Form Date: 09/19/2019 07:24:27 AM From: Sarah Lee CCS, CCDS Admit Date: 09/16/2019 09:36:00 AM Patient Name: Demond Pepper Visit Number: [id number] Discharge Date: 09/17/2019 01:19:00 PM ATTENTION: The Clinical Documentation Specialists (CDI) and [facility] Coding Staff appreciate your assistance in clarifying documentation. Please respond to the clarification below the line at the bottom and electronically sign. The CDI & [facility] Coding staff will review the response and follow-up if needed. Please note: Queries are made part of the Legal Health Record. If you have any questions, please contact the author of this message via ITS. Dr. Isa Martinez: 54 yo male presented to ED on 09/13 with fever, rigors, chills, body aches & pains, myalgias & sweating x3 days. No sick contacts/travel. Admit from ED with "likely COVID 19". Impression: Viral infection, Sepsis, fever. Per the 09/16 Discharge Summary: Sepsis most probably secondary with Maryann-Jc virus. Rule out COVID 19. Hyponatremia, Hypothermic. Severe Lymphopenia with LDH & elevated D Dimer secondary to systemic viral infection. Elevated liver enzymes secondary to systemic EBV. COVID TEST 09/13: NEGATIVE COVID Screen 09/13: Fever. No contact. Pt was in isolation precautions. Repeat test to be sent to the [facility] lab not returned. Patient history/risk factors: No significant history, non smoker. Clinical Indicators: . CXR 09/13: No acute pulmonary process. CT Chest 09/14: Some patchy atelectasis at the lung bases, no PE. Labs: WBC 2.8*, Pl Ct 112*, Lymphocytes 0.6*, D Dimer 10.91^, Na 132*, AST 302^, ALT 243^, Alk Phos 274^, Lactate Dehydrogenase 1490^, CRP 52.5^. Vital Signs:T 102.9^, P 101^, R 17-26^, BP 138/83, PO 94 RA Treatment: IV Rocephin, po Motrin, IV fluid 1,000 mls @ 999/hr, IV Morphine, IV fluid 1,000 mls@ 100/hr, IV Toradol. Consult: Infectious Disease: 09/14 ID Consult: Clinically suspicious for COVID 19 but swab is negative. Fever & Sepsis In order to capture the severity of condition, please clarify the COVID-19 status: COVID-19 ruled out False negative, treating for COVID-19 o based on these clinical indicators: Other, please specify: (Last Form Revision: June 2019) COVID-19 ruled out MTDD
[2019-10-02] MEDS ORDERED: diphenhydrAMINE 50 MG/ML 1 ML VIAL ONE (09:58)
== END 2019-09-17 13:19 | disposition home or self-care (01) | DRG 872 ==
LOC: EC 15:37 → 4SSUR 22:32 → OBSVTOIN 09-16 09:36
PROVIDERS: ADMIT Internal Medicine; ATTEND Internal Medicine
DX: A41.89 Other specified sepsis (principal); E87.1 Hypo-osmolality and hyponatremia; B27.00 Gammaherpesviral mononucleosis without complication; D72.810 Lymphocytopenia; Z20.828 Contact with and (suspected) exposure to other viral communicable diseases; Z98.890 Other specified postprocedural states
CPT/HCPCS: 36415; 71045; 71275; 76700; 80048; 80053; 80074; 80076; 82728; 83605; 83615; 83735; 84145; 85025; 85027; 85379; 85610; 85730; 86140; 86308; 86644; 86645; 86663; 86664; 86665; 87040; 93005; 96361; 96374; 99285